=== PATIENT | female | born 1990 | race Two or more races ===

== ENCOUNTER → 2016-09-28 | Outpatient (CLI) | payer OTHER ==
[~2016-09-28] VITALS: Ht 157.5 cm; Wt 75.7 kg
[~2016-09-28] MED LIST: DIFLUCAN150 MG PO; FLONASE16 G1 BOTH NARES; LORATADINE10 M2 PO; LYSINE1000 MG PO; NAPROSYN500 MG PO; ONE-A-DAY WOME1 EAC1 PO; PREDNISONE20 MG PO; SUPER B-50 COM1 EACH PO; TRAMADOL HCL50 MG PO; VITAMIN D10000 UNIT PO
== END | disposition home or self-care (01) ==
LOC: AMB 10:00
PROC: 0DJD8ZZ Inspection of Lower Intestinal Tract, Via Natural or Artificial Opening Endoscopic (ICD-10-PCS; principal; 2016-09-28)
DX: K60.2 Anal fissure, unspecified (principal); K64.8 Other hemorrhoids; K62.89 Other specified diseases of anus and rectum; L73.8 Other specified follicular disorders; F17.210 Nicotine dependence, cigarettes, uncomplicated
CPT/HCPCS: J2250

== ENCOUNTER 2017-09-02 11:40 | Inpatient (IN) | payer OTHER ==
[~2017-09-02] VITALS: Ht 157.5 cm; Wt 80.7 kg
[2017-09-02] VITALS (12 sets, daily range): BP systolic 110–134; BP diastolic 67–92
[2017-09-02 13:10] LABS: BASOPHIL (%) 0.3 % (0-1); EOSINOPHIL (%) 0.8 % (0-5); EOSINOPHIL COUNT 0.1 K/uL (0-0.3); HEMATOCRIT 41.5 % (36.0-46.0); HEMOGLOBIN 13.7 G/DL (11.9-15.5); IMMATURE GRANULOCYTE (%) 1.1 % (0.0-0.7); LYMPHOCYTE (%) 13.4 % (15-42); LYMPHOCYTE COUNT 1.4 K/uL (1.0-2.8); MCH 28.1 PG (29.0-34.0); MONOCYTE COUNT 0.6 K/uL (0-0.8); NEUTROPHIL (%) 78.4 % (45-76); NEUTROPHIL COUNT 8.1 K/uL (1.8-6.4); PLATELET COUNT 240 K/uL (156-360); RBC DIS.WIDTH-CV 14.4 % (11.8-14.6); RBC DIS.WIDTH-SD 44.8 % (39-53); RED BLOOD COUNT 4.88 M/uL (3.80-5.20); WHITE BLOOD COUNT 10.3 K/uL (4.1-10.2)
[2017-09-02 14:03] LABS: AMPHETAMINE NEGATIVE (500 ng/mL); BARBITURATES NEGATIVE (200 ng/mL); BENZODIAZEPINES NEGATIVE (150 ng/mL); BUPRENORPHINE NEGATIVE (10 ng/mL); COCAINE NEGATIVE (150 ng/mL); METHADONE NEGATIVE (200 ng/mL); METHAMPHETAMINE NEGATIVE (500 ng/mL); OPIATES (MORPHINE) NEGATIVE (100 ng/mL); OXYCODONE NEGATIVE (100 ng/mL); PHENCYCLIDINE NEGATIVE (25 ng/mL); PROPOXYPHENE NEGATIVE (300 ng/mL); THC CANNABINOIDS NEGATIVE (50 ng/mL); TRICYCLIC ANTIDEPRESSANTS NEGATIVE (300 ng/mL)
[2017-09-02 14:11] LABS: GROUP B STREP NEGATIVE (NEGATIVE)
[2017-09-02] MEDS ORDERED: MOTRIN800 MG PO (15:49)
[2017-09-03 07:12] VITALS: BP 127/65
[2017-09-03 14:52] VITALS: BP 131/77
[2017-09-03 23:17] VITALS: BP 109/69
[2017-09-04 07:14] VITALS: BP 116/77
== END 2017-09-04 11:19 | disposition home or self-care (01) | DRG 775 ==
LOC: LDRP-OP 11:40 → 2WEST 11:41 → LDRP-OP 10-23 15:45
PROVIDERS: Nurse Practitioner
PROC: 10E0XZZ Delivery of Products of Conception, External Approach (ICD-10-PCS; principal; 2017-09-02)
DX: O42.92 Full-term premature rupture of membranes, unspecified as to length of time between rupture and onset of labor (principal); O99.354 Diseases of the nervous system complicating childbirth; G43.909 Migraine, unspecified, not intractable, without status migrainosus; O99.334 Smoking (tobacco) complicating childbirth; F17.210 Nicotine dependence, cigarettes, uncomplicated; Z3A.37 37 weeks gestation of pregnancy; Z37.0 Single live birth
CPT/HCPCS: 85025; 87653; J7120